=== PATIENT | male | born 1995 | race Two or more races ===

== ENCOUNTER 2022-01-15 09:12 | Emergency (ER) | payer SELFPAY ==
[~2022-01-15] VITALS: Ht 182.9 cm; Wt 102.1 kg
[2022-01-15] MEDS ORDERED: BACITRACIN TOP OINT 1 UD PKG TOP ONE (10:15)
[2022-01-15] MEDS ORDERED: KETOROLAC TROMETH 60MG/2ML VIAL IM ONE (10:15)
[2022-01-15] MEDS ORDERED: TETANUS-DIPTH-ACEL PERTUSSIS 0.5ML SYR Tdap IM ONE (10:15)
[2022-01-15] MEDS ORDERED: CEPH500C PO (11:20)
[2022-01-15 11:31] VITALS: BP 131/72
== END 2022-01-15 12:50 | disposition home or self-care (01) ==
LOC: ER 09:12
DX: S61.412A Laceration without foreign body of left hand, initial encounter (principal); F17.290 Nicotine dependence, other tobacco product, uncomplicated; W19.XXXA Unspecified fall, initial encounter; Y93.89 Activity, other specified; Y92.89 Other specified places as the place of occurrence of the external cause; Y99.8 Other external cause status
CPT/HCPCS: 12002; 73130; 90471; 90715; 96372; 99284; J1885